=== PATIENT | female | born 1960 | race Caucasian/White ===

== ENCOUNTER 2017-03-08 17:52 | Emergency (ER) | payer BC ==
[~2017-03-08] VITALS: Ht 157.5 cm; Wt 72.6 kg
[~2017-03-08 17:52] MED LIST: CYCLOBENZAPRINE10 MG ORAL; IBUPROFEN600 MG ORAL; NORCO 5-325 TA1 EACH ORAL
[2017-03-08] MEDS ORDERED: CYMBALTA30 MG ORAL (18:06)
[2017-03-08] MEDS ORDERED: XANAX0.5 MG ORAL (18:06)
[2017-03-08] MEDS ORDERED: METOPROLOL SUCC25 MG ORAL (18:06)
[2017-03-08 18:10] VITALS: BP 154/87
--- NOTE | 2017-03-08 18:26 | Emergency Room Report ---
History of Present Illness General Chief Complaint: Abdominal Pain Source: Patient Present Illness HPI 57YOF walk-in with 1 week intermittent lower abd pain radiating across lower abdomen and bilateral flank. 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 ago and s/p appy Been taking prilosec after self-dx for "acid reflux" Takes ibuprofen 2x/week for "many years" Denies dark stool, blood in stool Denies pulsatile mass in abdomen, previous AAA Allergies: Coded Allergies: No Known Allergies (Unverified , 09/27/15) Patient History Past Medical History: HTN Past Surgical History: appy Pertinent Family History: none Social History: Reports: smoking Last Menstrual Period: menopause Now: No Immunizations: UTD Reviewed Nursing Documentation: PMH: Agreed, PSxH: Agreed Nursing Documentation-PMH Past Medical History: No History, Except For Hx Cardiac Problems: No Hx Hypertension: Yes Hx Pacemaker: No Hx Asthma: No Hx COPD: No Hx Diabetes: No Hx Cancer: No Hx Gastrointestinal Problems: Yes - GERD Hx Dialysis: No History Of Psychiatric Problem: Yes - Anxiety, Depression Hx Neurological Problems: No Hx Cerebrovascular Accident: No Hx Seizures: No Review of Systems All Other Systems: negative except mentioned in HPI Physical Exam Vital Signs Date Time Temp Pulse Resp B/P (MAP) Pulse Ox O2 Delivery O2 Flow Rate FiO2 03/08/17 18:00 96.6 69 16 158/103 99 Room Air Sp02 EP Interpretation: reviewed, normal General Appearance: normal inspection, well appearing, no apparent distress, alert, GCS 15, non-toxic Head: normocephalic, atraumatic Eyes: bilateral eye PERRL, bilateral eye EOMI ENT: normal ENT inspection, hearing grossly normal, normal voice Neck: normal inspection, full range of motion, supple, no bony tend Respiratory: normal inspection, lungs clear, normal breath sounds, no respiratory distress, no retraction, no wheezing Cardiovascular #1: regular rate, rhythm, no edema Gastrointestinal: normal inspection, normal bowel sounds, non tender, soft, no mass, no guarding, no hernia, no pulsatile mass, no rebound Genitourinary: no CVA tenderness Musculoskeletal: normal inspection, back normal, normal range of motion, Lidia' s Sign negative Neurologic: normal inspection, alert, oriented x3, responsive, instrument repair technician III-XII nml as tested, speech normal Psychiatric: normal inspection, judgement/insight normal, mood/affect normal Skin: normal inspection, normal color, no rash Lymphatic: normal inspection Medical Decision Making Diagnostic Impression: Primary Impression: Abdominal pain Qualified Codes: R10.30 - Lower abdominal pain, unspecified ER Course VSS. Afebrile No focal abd ttp No peritonitis Given heavy NSAID use possibly gastritis With stable vitals, no leuks and no LFT abnormal, unlikely acute bacterial or surgical process at this time UA negative for UTI Feels much better Abd soft, NT/ND on serial exam Rx Pepcid BID Gave Dr Grier info for outpatient GIconsult/endoscopy DC home EKG Diagnostic Results Rate: normal Rhythm: NSR ST Segments: no acute changes ASA given to the pt in ED: No Rhythm Strip Diag. Results EP Interpretation: yes Rate: 65 Rhythm: NSR, no PVC's, no ectopy Last Vital Signs Date Time Temp Pulse Resp B/P (MAP) Pulse Ox O2 Delivery O2 Flow Rate FiO2 03/08/17 18:00 96.6 69 16 158/103 99 Room Air Status: improved Disposition: HOME, SELF-CARE Scripts Famotidine (PEPCID) 40 Mg Tablet 40 MG PO BID for 14 Days, #30 TAB 0 Refills Prov: SRAVAN LEE M.D. 03/08/17 SRAVAN LEE M.D. Mar 08, 2017 18:26
[2017-03-08] MEDS ORDERED: Mylanta II UD 30ml ORAL ONE (18:30)
[2017-03-08] MEDS ORDERED: Famotidine 20 MG/ 2ML VIAL IVP ONE (18:30)
[2017-03-08 19:10] LABS: APPEARANCE,URINE CLEAR; KETONES,URINE NEGATIVE (NEGATIVE); LEUKOCYTE ESTERASE ,URINE NEGATIVE (NEGATIVE); NITRITE,URINE NEGATIVE (NEGATIVE); PH,URINE 5 (4.5-8.0); PROTEIN,URINE NEGATIVE (NEGATIVE); UROBILINOGEN,URINE NORMAL MG/DL (0.0-1.0)
[2017-03-08 19:11] LABS: BASOPHILS % (AUTO) 1.4 % (0.0-2.0); EOSINOPHILS % (AUTO) 5.4 % (0.0-3.0); LYMPHOCYTES % (AUTO) 23.1 % (20.0-45.0); MEAN CORPUSCULAR HEMOGLOBIN 28.6 PG (27.0-31.0); MEAN CORPUSCULAR VOLUME 87 FL (80-99); MEAN PLATELET VOLUME 7.4 FL (6.5-10.1); MONOCYTES % (AUTO) 8.2 % (1.0-10.0); NEUTROPHILS % (AUTO) 61.9 % (45.0-75.0); PLATELET COUNT 229 K/UL (150-450); RED BLOOD COUNT 4.13 M/UL (4.20-5.40); RED CELL DISTRIBUTION WIDTH 14.1 % (11.6-14.8)
[2017-03-08 19:41] LABS: TROPONIN I < 0.30 ng/mL (<=0.30)
[2017-03-08 19:44] LABS: ALANINE AMINOTRANSFERASE 14 U/L (3-33); ALBUMIN/GLOBULIN RATIO 1.6 (1.0-2.7); ANION GAP 12 (5-15); ASPARTATE AMINO TRANSFERASE 16 U/L (5-40); CALCIUM 9.5 mg/dL (8.6-10.2); CARBON DIOXIDE 27 mEQ/L (20-30); CHLORIDE 103 mEQ/L (98-107); CREATININE 0.9 mg/dL (0.5-0.9); GLOMERULAR FILTRATION RATE > 60 mL/min (>60); HEMOLYSIS 2; LIPASE 33 U/L (< 60); POTASSIUM 4.1 mEQ/L (3.4-4.9); SODIUM 142 mEQ/L (135-145); TOTAL PROTEIN 6.8 g/dL (6.6-8.7)
[2017-03-08] MEDS ORDERED: PEPCID40 MG PO (19:56)
[2017-03-08 19:59] VITALS: BP 147/84
[2017-03-08 20:05] VITALS: BP 147/84
== END 2017-03-08 20:30 | disposition home or self-care (01) ==
LOC: EMR 20:18
DX: R10.30 Lower abdominal pain, unspecified (principal); Z98.84 Bariatric surgery status; I10 Essential (primary) hypertension; F17.200 Nicotine dependence, unspecified, uncomplicated; Z78.0 Asymptomatic menopausal state; K21.9 Gastro-esophageal reflux disease without esophagitis; F41.9 Anxiety disorder, unspecified; F32.9 Major depressive disorder, single episode, unspecified
CPT/HCPCS: 36415; 80053; 81003; 83690; 84484; 85025; 93005; 96374; 96375; 99284; J2405; S0028

== ENCOUNTER 2017-07-07 15:13 | Emergency (ER) | payer BC, OTHER ==
[~2017-07-07] VITALS: Ht 157.5 cm; Wt 77.1 kg
[~2017-07-07 15:13] MED LIST changes: +CYMBALTA30 MG ORAL; +METOPROLOL SUCC25 MG ORAL; +PEPCID40 MG PO; +XANAX0.5 MG ORAL
[2017-07-07 15:18] VITALS: BP 151/79
--- NOTE | 2017-07-07 15:36 | Emergency Room Report ---
History of Present Illness General Chief Complaint: General Complaint Source: Patient, Medical Record Present Illness HPI 57 y/o female c/o headache. States she has headache for 2 days assoc with muscle tension in her neck that is worse with ROM of the neck and with palpation. Not taking medications from her sxs. Denies any trauma, photophobia, nausea, facial droop, numbness, paralysis, diplopia, blindness, ALOC, CP, sore throat, neck stiffness, fever, and rashes. Allergies: Coded Allergies: No Known Allergies (Unverified , 09/27/15) Patient History Past Medical History: see triage record Reviewed Nursing Documentation: PMH: Agreed, PSxH: Agreed Nursing Documentation-PMH Past Medical History: No History, Except For Hx Cardiac Problems: No Hx Hypertension: Yes Hx Pacemaker: No Hx Asthma: No Hx COPD: No Hx Diabetes: No Hx Cancer: No Hx Gastrointestinal Problems: Yes - GERD Hx Dialysis: No Hx Neurological Problems: No Hx Cerebrovascular Accident: No Hx Seizures: No Review of Systems All Other Systems: negative except mentioned in HPI Physical Exam Vital Signs Date Time Temp Pulse Resp B/P (MAP) Pulse Ox O2 Delivery O2 Flow Rate FiO2 07/07/17 15:18 98.1 71 18 151/79 98 Room Air Sp02 EP Interpretation: reviewed, normal General Appearance: no apparent distress, alert, GCS 15, non-toxic Head: normocephalic, atraumatic Eyes: bilateral eye normal inspection, bilateral eye PERRL ENT: hearing grossly normal, normal pharynx, no angioedema, normal voice Neck: normal inspection, no meningismus, no bony tend, tender lateral - left side Respiratory: chest non-tender, lungs clear, normal breath sounds, speaking full sentences Cardiovascular #1: regular rate, rhythm, no edema, other - no carotid bruits Musculoskeletal: back normal, gait/station normal, normal range of motion Neurologic: alert, oriented x3, responsive, automatic pattern edger III-XII nml as tested, motor strength/tone normal, sensory intact, cerebellar normal, speech normal, no Babinski, no pronator Psychiatric: judgement/insight normal, memory normal, mood/affect normal, no suicidal/homicidal ideation Skin: normal color, no rash, warm/dry, well hydrated Medical Decision Making PA Attestation Dr. Ziegler is my supervising physician with whom patient management has been discussed with. Diagnostic Impression: Primary Impression: Tension headache ER Course Pt. presents to the ED c/o headache Ddx considered but are not limited to CVA, drug abuse, meningitis, migraine, tension LOPEZ, cluster LOPEZ, trigeminal neuralgia, transverse myelitis, rhabdo, acute renal failure, hypertension emergency, intracranial hemorrhage, concussion , skull fracture, spinal fracture Vital signs: are WNL, pt. is afebrile H&PE: Tension LOPEZ ORDERS: none required at this time. Diagnosis is clinical. Patient has no neurological deficits. Pain is reproducible. There was no trauma. ED INTERVENTIONS: Toradol 30mg, APAP 650mg. DISCHARGE: At this time pt. is stable for d/c to home. Will provide printed patient care instructions, and any necessary prescriptions. Care plan and follow up instructions have been discussed with the patient prior to discharge. Last Vital Signs Date Time Temp Pulse Resp B/P (MAP) Pulse Ox O2 Delivery O2 Flow Rate FiO2 07/07/17 15:18 98.1 71 18 151/79 98 Room Air Disposition: HOME, SELF-CARE Condition: Stable Scripts Methocarbamol* (ROBAXIN-750*) 750 Mg Tablet 750 MG PO TID, #30 TAB 0 Refills Prov: SABRY,TAMEEM P.A. 07/07/17 Naproxen* (NAPROXEN*) 500 Mg Tablet.dr 500 MG ORAL TWICE A DAY for 10 Days, #20 TAB Prov: SABRY,TAMEEM P.A. 07/07/17 Patient Instructions: Tension Headache Additional Instructions: Patient advised to use ibuprofen and tylenol as needed. Take as directed. Some simple lifestyle adjustments can help to reduce the frequency of headaches. These include: stop smoking, reduce the amount of alcohol you drink, decrease or stop drinking/eating caffeine, eat and sleep on a regular schedule, exercise several times per week. While there are no clinical trials proving the benefit of these measures, many headache specialists have found them helpful for their patients. Advised patient to go to the ER immediately if you experience a headache that is sudden and becomes severe within a few seconds or minutes, or that could be described as "the worst headache of your life", or if headache is severe and occurs with a fever or stiff neck, occurs with a seizure, personality changes, confusion, or passing out, begins quickly after strenuous exercise or minor injury, or if headache is new and occurs with weakness, numbness, or difficulty seeing. While migraine headaches can sometimes cause these symptoms, you should be evaluated urgently the first time these symptoms appear. Return sooner if sxs worsen or do not improve. OSAKR KELLEY Jul 07, 2017 15:36
[2017-07-07] MEDS ORDERED: ROBAXIN-750750 MG PO (15:37)
[2017-07-07] MEDS ORDERED: NAPROXEN500 M1 ORAL (15:37)
[2017-07-07] MEDS ORDERED: Ketorolac 30mg Inj IM ONE (15:45)
[2017-07-07 15:49] VITALS: BP 151/79
== END 2017-07-07 15:49 | disposition home or self-care (01) ==
LOC: EMR 15:32
DX: G44.209 Tension-type headache, unspecified, not intractable (principal); I10 Essential (primary) hypertension; K21.9 Gastro-esophageal reflux disease without esophagitis
CPT/HCPCS: 96372; 99284; J1885

== ENCOUNTER 2019-03-24 18:14 | Emergency (ER) | payer BC, OTHER ==
[~2019-03-24] VITALS: Ht 157.5 cm; Wt 81.6 kg
[~2019-03-24 18:14] MED LIST changes: +NAPROXEN500 M1 ORAL; +ROBAXIN-750750 MG PO
[2019-03-24] MEDS ORDERED: LOSARTAN POTASS50 MG ORAL (18:28)
[2019-03-24 18:32] VITALS: BP 167/97
--- NOTE | 2019-03-24 18:33 | NUR ---
ED Nurse Note:pt. came with left thumb swelling possible infection
--- NOTE | 2019-03-24 18:49 | Emergency Room Report ---
History of Present Illness General Chief Complaint: Pain Source: Medical Record Present Illness HPI 59-year-old female with history here complaining of pain and swelling over left index finger x3 days. Patient reports that she types a lot and does not accommodation or has been cutting her cuticles. Rating the pain 7 out of 10 very localized to the site of infection, denies pain radiation tingling numbness. Patient has full range of motion. Denies fevers chills, shortness of breath, chest pain, palpitation, and other associated symptoms. Patient has not taken medication for symptom relief. Is up-to-date with her tetanus shot Allergies: Coded Allergies: No Known Allergies (Unverified , 09/27/15) Patient History Past Medical History: see triage record Past Surgical History: unable to obtain Pertinent Family History: none Now: No Immunizations: UTD Reviewed Nursing Documentation: PMH: Agreed; PSxH: Agreed Nursing Documentation-PM Past Medical History: No History, Except For Hx Cardiac Problems: No Hx Hypertension: Yes Hx Pacemaker: No Hx Asthma: No Hx COPD: No Hx Diabetes: No Hx Cancer: No Hx Gastrointestinal Problems: Yes - GERD Hx Dialysis: No Hx Neurological Problems: No Hx Cerebrovascular Accident: No Hx Seizures: No Review of Systems All Other Systems: negative except mentioned in HPI Physical Exam Vital Signs Date Time Temp Pulse Resp B/P (MAP) Pulse Ox O2 Delivery O2 Flow Rate FiO2 03/24/19 18:22 97.9 82 18 167/97 (120) 98 Room Air Sp02 EP Interpretation: reviewed, normal General Appearance: no apparent distress, alert, GCS 15, non-toxic Head: normocephalic, atraumatic Eyes: bilateral eye normal inspection, bilateral eye PERRL ENT: hearing grossly normal, normal pharynx, no angioedema, normal voice Neck: full range of motion, supple/symm/no masses Respiratory: chest non-tender, lungs clear, normal breath sounds, no rhonchi, no retraction, speaking full sentences Cardiovascular #1: regular rate, rhythm, no edema, no murmur Cardiovascular #2: 2+ radial (R), 2+ radial (L) Gastrointestinal: normal inspection, normal bowel sounds, non tender, soft, no mass Rectal: deferred Musculoskeletal: back normal, gait/station normal, normal range of motion, non- tender Neurologic: alert, oriented x3, responsive, motor strength/tone normal, sensory intact, speech normal Psychiatric: judgement/insight normal, memory normal, mood/affect normal, no suicidal/homicidal ideation Skin: other - infection, w/o abscess or paronychea of left index finger Lymphatic: no adenopathy Medical Decision Making PA Attestation All my diagnosis and treatment plans were reviewed ad discussed with my supervising physician Dr. Esquivel Diagnostic Impression: Primary Impression: Cellulitis, finger ER Course 59-year-old female with history here complaining of pain and swelling over left index finger x3 days. Patient reports that she types a lot and does not accommodation or has been cutting her cuticles. Rating the pain 7 out of 10 very localized to the site of infection, denies pain radiation tingling numbness. Patient has full range of motion. Denies fevers chills, shortness of breath, chest pain, palpitation, and other associated symptoms. Patient has not taken medication for symptom relief. Is up-to-date with her tetanus shot Ddx considered but are not limited to : Cellulitis, paronychia, superficial infection, abscess Vital signs: are WNL, pt. is afebrile H&PE are most consistent with: Cellulitis finger ORDERS: Keflex, ibuprofen ED INTERVENTIONS: None required at this time. DISCHARGE: At this time pt. is stable for d/c to home. Will provide printed patient care instructions, and any necessary prescriptions. Care plan and follow up instructions have been discussed with the patient prior to discharge. I advised the patient to follow-up with primary care provider avoid strenuous physical activity take medication as directed no bandages necessary Last Vital Signs Date Time Temp Pulse Resp B/P (MAP) Pulse Ox O2 Delivery O2 Flow Rate FiO2 03/24/19 18:32 97.9 69 18 167/97 98 Room Air Disposition: HOME, SELF-CARE Condition: Stable Scripts Ibuprofen (Ibuprofen) 800 Mg Tablet 800 MG PO BID, #20 TAB Prov: Damaris Padilla 03/24/19 Cephalexin* (KEFLEX*) 500 Mg Capsule 500 MG ORAL EVERY 6 HOURS for 7 Days, #28 CAP Prov: Damaris Padilla 03/24/19 Patient Instructions: Cellulitis, [id number] Additional Instructions: Take medication as directed follow-up with your primary care provider if worsening symptoms return to the emergency room Damaris Padilla Mar 24, 2019 18:49
[2019-03-24] MEDS ORDERED: IBUPROFEN800 M1 PO (18:50)
[2019-03-24] MEDS ORDERED: CEPHALEXIN500 MG ORAL (18:50)
--- NOTE | 2019-03-24 19:00 | NUR ---
ER DISCHARGE NOTE: Patient is cleared to be discharged per ERMD, pt is aox4, on room air, with stable vital signs. pt was given dc and prescription instructions, pt was able to verbalize understanding, pt is able to ambulate with steady gait. pt took all belongings.
[2019-03-24 19:10] VITALS: BP 167/97
== END 2019-03-24 19:10 | disposition home or self-care (01) ==
LOC: EMR 18:31
DX: L03.012 Cellulitis of left finger (principal); K21.9 Gastro-esophageal reflux disease without esophagitis; I10 Essential (primary) hypertension
CPT/HCPCS: 99282